=== PATIENT | male | born 1970 | race Two or more races ===

== ENCOUNTER → 2018-09-03 | Day surgery (SDC) | payer OTHER ==
[~2018-09-03] MED LIST: BRIO INH; FENTANYL CITRATE/PF 100MCG/2 ML INJ ONE; LIDOCAINE HCL 2% LOCAL INJ 5 ML SDV VIAL INJ ONE; MIDAZOLAM HCL 2 MG/2 ML VIAL ONE; MULTI-VITAMIN1 EACH; PROPOFOL IV EMULSION 10 MG/ML 20 ML VIAL ONE; SINGULAIR10 MG PO
--- OUTSIDE RECORDS SUMMARY | 2018-09-03 08:26 | XMS REPORT ---
Author Author Kayy Langley [facility] eClinicalWorks Address Unknown Phone Unavailable Care Team Providers Care Procurement Professional Logistics Name Role Phone Kayy Langley CP Unavailable Allergies, Adverse Reactions, Alerts Substance Reaction Event Type N.K.D.A. Info Not Available Non Drug Allergy Problems Problem Type Condition Code Onset Dates Condition Status Assessment Annual physical exam Z00.00 Active Medications No Known Medications Vital Signs Date/Time: Nov 24, 2017 BMI 24.41 Index Weight 185 lbs Height 73 in Temperature 98.2 F Cardiac Monitoring Heart Rate 70 /min Blood Pressure Diastolic 85 mm Hg Blood Pressure Systolic 125 mm Hg Results No Known Results Summary Purpose eClinicalWorks Submission
--- OUTSIDE RECORDS SUMMARY | 2018-09-03 08:26 | XMS REPORT ---
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 62145168355 180-240 MG Orally Once a day Dec 27, 2017 Jan 26, 2018 Active 1 tablet Cleocin-T [facility] 51896822869 1 % Externally Twice a day Jan 01, 2018 Active 1 application to affected area Singulair [facility] 11673370781 10 mg Orally Once a day Active 1 tablet Doxycycline Hyclate [facility] 86937410380 100 mg Orally Once a day Apr 24, 2018 Active 1 tablet Levocetirizine Dihydrochloride [facility] 03476851812 5 MG Orally Once a day Dec 27, 2017 June 25, 2018 Active 1 tablet in the evening Levocetirizine Dihydrochloride [facility] 89849787725 5 MG Orally Once a day Dec 27, 2017 Jan 26, 2018 Active 1 tablet in the evening Integra F [facility] 64977113893 125-1 MG Orally Once a day Dec 06, 2017 Active 1 capsule Ergocalciferol [facility] 70764770160 03009 UNIT Orally once a week Dec 06, 2017 Dec 20, 2018 Active 1 capsule Breo Ellipta [facility] 23716562545 100-25 MCG/INH Inhalation Once a day June 23, 2018 Active 1 puff Fexofenadine HCl [facility] 70822315616 180 MG Orally daily June 23, 2018 Active 1 tablet Fexofenadine-Pseudoephed ER [facility] 47773538523 180-240 MG Orally Once a day Dec 27, 2017 June 25, 2018 Active 1 tablet Vital Signs Date/Time: Jan 22, 2018 BMI 24.41 Index Weight 185 lbs Height 73 in Temperature 98 F Cardiac Monitoring Heart Rate 73 /min Blood Pressure Diastolic 78 mm Hg Blood Pressure Systolic 127 mm Hg Results No Known Results Immunizations Vaccine Administration Date FLU SHOT 3 & UP Jan 22, 2018 Summary Purpose eClinicalWorks Submission
--- OUTSIDE RECORDS SUMMARY | 2018-09-03 08:26 | XMS REPORT ---
Author Author Kayy Langley Organization e[employer] Address Unknown Phone Unavailable Care Team Providers Care Paint And Table Edger Name Role Phone Shivam Kayy Unavailable Allergies, Adverse Reactions, Alerts Substance Reaction Event Type N.K.D.A. 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 Assessment Generalized abdominal pain R10.84 Active Assessment Gastroesophageal reflux disease without esophagitis K21.9 Active Assessment Peptic ulcer disease K27.9 Active Assessment Other fatigue R53.83 Active Problem Gastroesophageal reflux disease without esophagitis K21.9 Active Problem Moderate persistent asthma with exacerbation J45.41 Active Problem Peptic ulcer disease K27.9 Active Problem Environmental allergies Z91.09 Active Problem Other fatigue R53.83 Active Problem Moderate persistent asthma without complication J45.40 Active Problem Acne vulgaris L70.0 Active Medications Medication Code System Code Instructions Start Date End Date Status Dosage Ergocalciferol [facility] 05368119624 81430 UNIT Orally once a week Dec 06, 2017 Dec 20, 2018 Active 1 capsule Dicyclomine HCl [facility] 03715595907 20 mg Orally Four times a day as needed Active 1 tablet Doxycycline Hyclate [facility] 26434902173 100 Orally Once a day Active 1 tablet Singulair [facility] 04634098595 10 mg Orally Once a day Active 1 tablet Sucralfate [facility] 82428319931 1 GM/10ML Orally Twice a day as needed August 23, 2018 Nov 29, 2018 Active 10 ml on an empty stomach Integra F [facility] 14557255407 125-1 MG Orally Once a day Dec 06, 2017 Active 1 capsule Cleocin-T [facility] 97012174219 1 % Externally Twice a day Jan 01, 2018 Active 1 application to affected area Montelukast Sodium [place] 51427412626 10 mg Orally twice a day (bid) Apr 23, 2018 Active 1 tablet Protonix [facility] 19926589668 40 mg Orally twice a day (bid) Active 1 tablet Vital Signs Date/Time: August 31, 2018 BMI 24.41 Index Weight 185 lbs Height 73 in Temperature 98.2 F Cardiac Monitoring Heart Rate 80 /min Blood Pressure Diastolic 78 mm Hg Blood Pressure Systolic 122 mm Hg Results No Known Results Summary Purpose eClinicalWorks Submission
--- OUTSIDE RECORDS SUMMARY | 2018-09-03 08:26 | XMS REPORT ---
Author Author Kayy Langley Organization eClinical[employer] Address Unknown Phone Unavailable Care Team Providers Care Linoleum Layer Apprentice Name Role Phone Kayy Langley CP Unavailable Allergies, Adverse Reactions, Alerts Substance Reaction Event Type N.K.D.A. 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 Problem Moderate persistent asthma without complication J45.40 Active Problem Low vitamin D level R79.89 Active Assessment Other fatigue R53.83 Active Assessment 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 Assessment 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 Assessment Low vitamin D level R79.89 Active Medications Medication Code System Code Instructions Start Date End Date Status Dosage Breo Ellipta [facility] 37013612985 100-25 MCG/INH Inhalation Once a day June 23, 2018 Active 1 puff Fexofenadine HCl [facility] 03267746875 180 MG Orally daily June 23, 2018 Active 1 tablet Integra F [facility] 86481476295 125-1 MG Orally Once a day Dec 06, 2017 Active 1 capsule Doxycycline Hyclate [facility] 75346557945 100 mg Orally Once a day Apr 24, 2018 Active 1 tablet Singulair [facility] 72779937658 10 mg Orally Once a day Active 1 tablet Ergocalciferol [facility] 40093021807 39436 UNIT Orally once a week Dec 06, 2017 Dec 20, 2018 Active 1 capsule Vital Signs Date/Time: Dec 25, 2017 BMI 24.41 Index Weight 185 lbs Height 73 in Temperature 98 F Cardiac Monitoring Heart Rate 75 /min Blood Pressure Diastolic 80 mm Hg Blood Pressure Systolic 120 mm Hg Results No Known Results Summary Purpose eClinicalWorks Submission
--- OUTSIDE RECORDS SUMMARY | 2018-09-03 08:26 | XMS REPORT ---
Author Author Kayy Langley Organization eClinical[employer] Address Unknown Phone Unavailable Care Team Providers Care Armature Bander Name Role Phone Shivam, Kayy Unavailable Allergies, Adverse Reactions, Alerts Substance Reaction Event Type N.K.D.A. Info Not Available Non Drug Allergy Problems Problem Type Condition Code Onset Dates Condition Status Problem Environmental allergies Z91.09 Active Problem Other fatigue R53.83 Active Assessment RUQ abdominal pain R10.11 Active Assessment Gastroesophageal reflux disease without esophagitis K21.9 Active Assessment Generalized abdominal pain R10.84 Active Problem Moderate persistent asthma with exacerbation J45.41 Active Problem Low vitamin D level R79.89 Active Problem Gastroesophageal reflux disease without esophagitis K21.9 Active Problem Moderate persistent asthma without complication J45.40 Active Problem Acne vulgaris L70.0 Active Problem 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 Problem 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 Medications Medication Code System Code Instructions Start Date End Date Status Dosage Integra F [facility] 60512416772 125-1 MG Orally Once a day Dec 06, 2017 Active 1 capsule Montelukast Sodium [facility] 25172438077 10 mg Orally twice a day (bid) Apr 23, 2018 Active 1 tablet Protonix [facility] 79836840678 40 mg Orally twice a day (bid) Active 1 tablet Dicyclomine HCl [facility] 76156786208 20 mg Orally Four times a day as needed August 23, 2018 September 02, 2018 Active 1 tablet Ergocalciferol [facility] 44884505815 19709 UNIT Orally once a week Dec 06, 2017 Dec 20, 2018 Active 1 capsule Doxycycline Hyclate [place] 63042059642 100 Orally Once a day Active 1 tablet Cleocin-T [facility] 18143253087 1 % Externally Twice a day Jan 01, 2018 Active 1 application to affected area Sucralfate [facility] 62499946897 1 GM/10ML Orally Twice a day as needed August 23, 2018 September 22, 2018 Active 10 ml on an empty stomach Singulair [facility] 04655768009 10 mg Orally Once a day Active 1 tablet Vital Signs Date/Time: August 23, 2018 BMI 24.41 Index Weight 185 lbs Height 73 in Temperature 98.4 F Cardiac Monitoring Heart Rate 82 /min Blood Pressure Diastolic 80 mm Hg Blood Pressure Systolic 120 mm Hg Results No Known Results Summary Purpose eClinicalWorks Submission
--- OUTSIDE RECORDS SUMMARY | 2018-09-03 08:26 | XMS REPORT ---
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
--- OUTSIDE RECORDS SUMMARY | 2018-09-03 08:26 | XMS REPORT ---
Author Author Kayy Langley Organization eClinicalWorks Address Unknown Phone Unavailable Care Team Providers Care Knuckler Name Role Phone Kayy Langley CP Unavailable Allergies No Known Allergies Problems No Known Problems Medications Medication Code System Code Instructions Start Date End Date Status Dosage Ergocalciferol [facility] 53072414278 78108 UNIT Orally once a week Dec 06, 2017 Jan 05, 2018 Active 1 capsule Integra F [facility] 70947669338 125-1 MG Orally Once a day Dec 06, 2017 Active 1 capsule Results No Known Results Summary Purpose eClinicalWorks Submission
--- OUTSIDE RECORDS SUMMARY | 2018-09-03 08:26 | XMS REPORT ---
Author Author Kayy Langley Organization eClinicalWorks Address Unknown Phone Unavailable Care Team Providers Care Bucket Turner Name Role Phone Shivam Kayy CP Unavailable Allergies No Known Allergies Problems [...] Instructions Start Date End Date Status Dosage Mupirocin Calcium [facility] 96904306512 2 % Externally Three times a day Jan 01, 2018 Jan 11, 2018 Active 1 application to affected area Cleocin-T [facility] 24363981196 1 % Externally Twice a day Jan 01, 2018 Active 1 application to affected area Results No Known Results Summary Purpose eClinicalWorks Submission
--- OUTSIDE RECORDS SUMMARY | 2018-09-03 08:26 | XMS REPORT ---
Author Author Kayy Langley Organization eClinicalWorks Address Unknown Phone Unavailable Care Team Providers Care Pipe Finishing Supervisor Name Role Phone Shivam Kayy Unavailable Allergies, Adverse Reactions, Alerts Substance Reaction Event Type N.K.D.A. Info Not Available Non Drug Allergy Problems Problem Type Condition Code Onset Dates Condition Status Assessment Bronchitis J40 Active Problem Moderate persistent asthma without complication J45.40 Active Assessment Environmental allergies Z91.09 Active Assessment Moderate persistent asthma with exacerbation J45.41 Active [...] Instructions Start Date End Date Status Dosage Cleocin-T [facility] 04651836809 1 % Externally Twice a day Jan 01, 2018 Active 1 application to affected area Fexofenadine HCl [facility] 52351713118 180 MG Orally daily June 23, 2018 Active 1 tablet Singulair [facility] 24172277589 10 mg Orally Once a day Active 1 tablet Breo Ellipta [facility] 22257184891 100-25 MCG/INH Inhalation Once a day June 23, 2018 Active 1 puff Integra F [facility] 47329885107 125-1 MG Orally Once a day Dec 06, 2017 Active 1 capsule Ergocalciferol [facility] 40954975987 88906 UNIT Orally once a week Dec 06, 2017 Dec 20, 2018 Active 1 capsule Fexofenadine-Pseudoephed ER [facility] 36704545760 180-240 MG Orally Once a day Dec 27, 2017 June 25, 2018 Active 1 tablet Levocetirizine Dihydrochloride [facility] 05937251611 5 MG Orally Once a day Dec 27, 2017 June 25, 2018 Active 1 tablet in the evening Amoxicillin-Pot Clavulanate [facility] 30472660728 875-125 MG Orally every 12 hrs Feb 21, 2018 Mar 03, 2018 Active 1 tablet Doxycycline Hyclate [facility] 02891119413 100 mg Orally Once a day Apr 24, 2018 Active 1 tablet Vital Signs Date/Time: Feb 21, 2018 BMI 24.41 Index Weight 185 lbs Height 73 in Temperature 100.4 F Cardiac Monitoring Heart Rate 80 /min Blood Pressure Diastolic 72 mm Hg Blood Pressure Systolic 126 mm Hg Results No Known Results Summary Purpose eClinicalWorks Submission
--- OUTSIDE RECORDS SUMMARY | 2018-09-03 08:26 | XMS REPORT | Continuity of Care Document ---
Author Author [facility] Interface Address Unknown Phone Unavailable Problems Problem Status Onset Date Classification Date Reported Comments Source Environmental allergies Active Problem 09/01/2018 [facility] Primary Other fatigue Active Diagnosis 09/01/2018 [facility] Acne vulgaris Active Problem 09/01/2018 [facility] Primary Other anemia due to enzyme disorder Active Problem 09/01/2018 [facility] Primary Beta minor thalassemia Active Problem 09/01/2018 [facility] Primary Moderate persistent asthma without complication Active Problem 09/01/2018 [facility] Primary Low vitamin D level Active Problem 09/01/2018 [facility] Primary Moderate persistent asthma with exacerbation Active Problem 09/01/2018 [facility] Primary RUQ abdominal pain Active Diagnosis 08/24/2018 [facility] Primary Gastroesophageal reflux disease without esophagitis Active Diagnosis 09/01/2018 [facility] Primary Generalized abdominal pain Active Diagnosis 09/01/2018 [facility] Primary Peptic ulcer disease Active Diagnosis 09/01/2018 [facility] Primary Bronchitis Active Diagnosis 02/22/2018 [facility] Primary Medications Medication Details Route Status Patient Instructions Ordering Provider Order Date Source Dicyclomine HCl 1 tablet Orally Active 20 mg Orally Four times a day as needed Shivam 08/23/2018 [facility] Primary Sucralfate 10 ml on an empty stomach Orally Active 1 GM/10ML Orally Twice a day as needed Shivam 08/23/2018 [facility] Primary Breo Ellipta 1 puff Inhalation Active 100-25 MCG/INH Inhalation Once a day Shivam 06/23/2018 [facility] Primary Fexofenadine HCl 1 tablet Orally Active 180 MG Orally daily Shivam 06/23/2018 [facility] Primary Doxycycline Hyclate 1 tablet Orally Active 100 mg Orally Once a day Shivam 04/24/2018 [facility] Primary Montelukast Sodium 1 tablet Orally Active 10 mg Orally twice a day (bid) Shivam 04/23/2018 [facility] Primary Amoxicillin-Pot Clavulanate 1 tablet Orally Active 875-125 MG Orally every 12 hrs Shivam 02/21/2018 [facility] Primary Mupirocin Calcium 1 application to affected area Externally Active 2 % Externally Three times a day Shivam 01/01/2018 [facility] Cleocin-T 1 application to affected area Externally Active 1 % Externally Twice a day [facility] 01/01/2018 [facility] Fexofenadine-Pseudoephed ER 1 tablet Orally Active 180-240 MG Orally Once a day [facility] 12/27/2017 [facility] Levocetirizine Dihydrochloride 1 tablet in the evening Orally Active 5 MG Orally Once a day [facility] 12/27/2017 [facility] Ergocalciferol 1 capsule Orally Active 44511 UNIT Orally once a week [facility] 12/06/2017 [facility] Integra F 1 capsule Orally Active 125-1 MG Orally Once a day [facility] 12/06/2017 [facility] Singulair 1 tablet Orally Active 10 mg Orally Once a day [facility] Protonix 1 tablet Orally Active 40 mg Orally twice a day (bid) [facility] Doxycycline Hyclate 1 tablet Orally Active 100 Orally Once a day [facility] Dicyclomine HCl 1 tablet Orally Active 20 mg Orally Four times a day as needed [facility] Allergies, Adverse Reactions, Alerts Substance Category Reaction Severity Reaction type Status Date Reported Comments Source N.K.D.A. Adverse Reaction Info Not Available Adverse Reaction Active 08/31/2018 [facility] Immunizations Immunization Date Given Site Status Last Updated Comments Source FLU SHOT 3 & UP 01/22/2018 completed [facility] Results Order Name Results Value Reference Range Date Interpretation Comments Source Vital Signs Vital Sign Value Date Comments Source Weight 185 08/31/2018 [facility] Height 73 08/31/2018 [facility] Temperature Oral (F) 98.2 F 08/31/2018 [facility] Heart Rate 80 08/31/2018 [facility] Primary Diastolic (mm Hg) 78 08/31/2018 [facility] Primary Systolic (mm Hg) 122 08/31/2018 [facility] Primary Weight 185 08/23/2018 [facility] Primary Height 73 08/23/2018 [facility] Primary Temperature Oral (F) 98.4 F 08/23/2018 [facility] Primary Heart Rate 82 08/23/2018 [facility] Primary Diastolic (mm Hg) 80 08/23/2018 [facility] Primary Systolic (mm Hg) 120 08/23/2018 [facility] Primary Weight 185 02/21/2018 [facility] Primary Height 73 02/21/2018 [facility] Primary Temperature Oral (F) 100.4 F 02/21/2018 [facility] Primary Heart Rate 80 02/21/2018 [facility] Primary Diastolic (mm Hg) 72 02/21/2018 [facility] Primary Systolic (mm Hg) 126 02/21/2018 [facility] Primary Weight 185 01/22/2018 [facility] Primary Height 73 01/22/2018 [facility] Primary Temperature Oral (F) 98 F 01/22/2018 [facility] Primary Heart Rate 73 01/22/2018 [facility] Primary Diastolic (mm Hg) 78 01/22/2018 [facility] Primary Systolic (mm Hg) 127 01/22/2018 [facility] Primary Weight 185 12/25/2017 [facility] Primary Height 73 12/25/2017 [facility] Primary Temperature Oral (F) 98 F 12/25/2017 [facility] Primary Heart Rate 75 12/25/2017 [facility] Primary Diastolic (mm Hg) 80 12/25/2017 [facility] Primary Systolic (mm Hg) 120 12/25/2017 [facility] Primary Weight 185 11/24/2017 [facility] Primary Height 73 11/24/2017 [facility] Primary Temperature Oral (F) 98.2 F 11/24/2017 [facility] Primary Heart Rate 70 11/24/2017 [facility] Primary Diastolic (mm Hg) 85 11/24/2017 [facility] Primary Systolic (mm Hg) 125 11/24/2017 [facility] Primary Encounters Location Location Details Encounter Type Encounter Number Reason For Visit Attending Provider ADM Date DC Date Status Source Procedures Procedure Code Date Perfomer Comments Source
[2018-09-03 11:30] VITALS: BP 122/73
--- NOTE | 2018-09-03 19:04 | Operative Report ---
DATE OF PROCEDURE: 09/03/2018 SURGEON: Barak Hanson MD PREOPERATIVE DIAGNOSES: 1. Chronic gastroesophageal reflux disease. 2. History of colon polyps, due for a screening colonoscopy. POSTOPERATIVE DIAGNOSES: 1. Chronic gastroesophageal reflux disease. 2. Small duodenal ulcer. 3. Streaky gastritis. 4. Normal colon exam. PROCEDURES: 1. EGD with gastric biopsy x2. 2. Colonoscopy. ANESTHESIA: Monitored anesthesia care. FLUIDS: As per Anesthesia. ASSSITANT: None. EBL: Minimal. DRAINS: None. COMPLICATIONS: None. SPECIMEN: Gastric biopsy x2 using cold forceps. FINDINGS: 1. Streaky gastritis. 2. Small mild duodenal ulceration at the first portion of the duodenum. 3. Normal colon exam. GRAFTS: None. PROCEDURE IN DETAIL: The patient was brought to the endoscopy suite, sedated with IV propofol. We began with introducing an endoscope through the oropharynx, which was guided to the second portion of the duodenum and noted some streaky erythematous gastritis in the body of the stomach, which was biopsied x2 using cold forceps. There was also a mild patchy ulcer in the first portion of the duodenum. There was no bleeding or other pathology noted. Prior to removing the endoscope, the stomach was desufflated. We then turned the patient around. I then performed a digital rectal exam, no blood or masses were felt. I then introduced a colonoscope and advanced this to the level of the cecum. The prep was poor, thus visualization was not excellent. I did not find any pathology during the colon exam. Retroflexion was done, but there was difficult visualization due to the burden of the stool. The scope was then removed. The patient tolerated the procedure well. All counts were correct. Barak Hanson MD C/MODL /[id number]
== END | disposition home or self-care (01) ==
LOC: OR 08:23
PROVIDERS: ATTEND Surgery
DX: D12.6 Benign neoplasm of colon, unspecified (principal); K29.60 Other gastritis without bleeding; K21.9 Gastro-esophageal reflux disease without esophagitis; K26.9 Duodenal ulcer, unspecified as acute or chronic, without hemorrhage or perforation; K59.00 Constipation, unspecified; J45.909 Unspecified asthma, uncomplicated; D56.3 Thalassemia minor
CPT/HCPCS: 43239; 45378; 88305; 88312; J2001; J2250; J2704